=== PATIENT | female | born 1970 | race Caucasian/White ===

== ENCOUNTER 2019-03-10 22:24 | Outpatient (CLI) | payer MEDICAID ==
[~2019-03-10] VITALS: Ht 165.1 cm; Wt 96.1 kg
[2019-03-10 22:57] VITALS: BP 133/90; PULSE 82; RESP 16
== END 2019-03-11 01:27 | disposition home or self-care (01) ==
LOC: OBT 22:24 → L-D 22:28 → OBT 03-11 01:27
PROVIDERS: ATTEND Obstetrics & Gynecology
DX: O62.9 Abnormality of forces of labor, unspecified (principal); O09.523 Supervision of elderly multigravida, third trimester; Z3A.31 31 weeks gestation of pregnancy
CPT/HCPCS: 76817; 76818; 80053; 81001; 84560; 85025; 87086; Z7500; G0463